=== PATIENT | male | born 1985 | race African-American/Black ===

== ENCOUNTER 2019-05-13 09:01 | Emergency (ER) | payer OTHER ==
[~2019-05-13] VITALS: Ht 167.6 cm; Wt 72.6 kg
[2019-05-13 09:38] VITALS: BP 141/91
[2019-05-13] MEDS ORDERED: KETOROLAC TROMETH 60MG/2ML VIAL IM ONE (09:45)
[2019-05-13] MEDS ORDERED: methylPREDNISolone SOD SUCC 125 MG/2 ML VL IM ONE (09:45)
== END 2019-05-13 10:21 | disposition home or self-care (01) ==
LOC: ER 09:01
DX: M25.511 Pain in right shoulder (principal)
CPT/HCPCS: 96372; 99284; J1885; J2930